=== PATIENT | female | born 1955 | race Caucasian/White ===

== ENCOUNTER 2023-06-02 08:33 | Emergency (ER) | payer MEDICARE, SELFPAY ==
[2023-06-02 08:37] VITALS: BP 162/92
--- NOTE | 2023-06-02 09:16 | ED.SKININJ ---
HPI-Injury
General
Chief Complaint: Head Injury
Source: patient
Exam Limitations: none
Time Seen by Provider: 06/02/23 08:55
Travel History
Have you had any contact with someone who has COVID-19?: No
Do you have any symptoms of coronavirus? Fever > 100 degrees, chills, cough, shortness of breath, sore throat, loss of taste or smell, muscle aches, or headache?: No
History of Present Illness-Injury
Initial Injury comments:
67-year-old female presents after fall in the bathroom. She slipped on the rug and fell hitting her head on the corner of the door. She also hit her knee. No anticoagulants. No loss conscious. She notes a headache. She notes some neck pain as
well. No other complaints at this
Past History
Past History
ED Past Medical History: None
ED Past Surgical History: Other (She has a history of a hysterectomy and back surgery, and surgery)
Social History
Tobacco: Non-smoker
Personal:
Living: with family
Employment: Employed
Phy Exam
Physical Exam
Physical Exam:
General: Well-appearing female no acute respiratory distress
HEENT: Normocephalic 4 and half centimeter curvilinear wound in the anterior to posterior direction over the right superior scalp. Edges do separate. Pupils equal round reactive to light
Musculoskeletal exam: Spine is mildly tender over the lower aspect of the cervical spine. Left knee swollen ecchymotic over the anterior knee. No deformities.
Skin positive for the above-mentioned laceration
Neurologic: Alert normal gait.
Course
Orders/Labs/Results
Orders:
Orders
06/02/23 08:41
Knee, Left 4 or More Views [CR Knee - Left 4 Or More View*] Urgent
Comment:
Reason For Exam: injury
06/02/23 09:15
CT Cervical Spine W/o Iv Contr Urgent
Comment:
Reason For Exam: fall, neck pain
CT Head W/o Iv Contrast Urgent
Comment:
Reason For Exam: fall, head injury
Vital Signs
Initial and Last Documented VS:
Initial Vital Signs
Temp Pulse Resp BP Pulse Ox
98.3 F 72 16 162/92 98
06/02/23 08:37 06/02/23 08:37 06/02/23 08:37 06/02/23 08:37 06/02/23 08:37
Last Documented Vital Signs
Temp Pulse Resp BP Pulse Ox
98.3 F 72 16 162/92 98
06/02/23 08:37 06/02/23 08:37 06/02/23 08:37 06/02/23 08:37 06/02/23 08:37
Procedures
Laceration Closure
Superior Scalp:
Status of Wound: clean
Description of Wound Edges: sharp
Preparation: cleaned with saline
Anesthesia: 1% Lidocaine with epi
Wound exploration: explored to base- no FB
Type of Closure: single layer closure
Skin Closure Material: skin clement
Number of sutures: 6
MDM/Problems Addressed
Differential Diagnosis Includes:
Mechanical fall laceration to scalp. CT of head and cervical spine pending. Also pain to the left knee after the fall. X-rays left knee pending
*Critical Care Note
Total Time (30-74mins, 75-104mins- exclusive of procedures): Not Applicable
Update Note
Update Note:
CT of head and cervical spine both negative. Patient reassured. Stable for discharge home
ED Attending Note
-
Portions of this chart may have been created with voice recognition software.� Occasional wrong word or��sound alike� substitutions may have occurred due to the inherent limitations of voice recognition software.
Discharge Plan
Departure
Patient Disposition: Home (Routine Discharge)
Date of Disposition: 06/02/23
Time of Disposition: 10:21
Patient with high blood pressure during this ER visit?: No
Discharge Problem:
Laceration
Instructions: Laceration Repair With [place] (DC)
Prescriptions:
No Action
bupropion HCl 300 MG tablet extended release 24 hr
300 mg PO DAILY
tramadol 50 MG tablet
50 mg PO Q8HPRN PRN (Reason: pain) Qty: 20 0RF
Referrals:
Ouomu Thrasher DO [Family Provider] -
Activity Restrictions/Additional Instructions:
Have clement removed in 7 days. Ice to the sore spots. Use Tylenol for pain
Interventions
Interventions:
*Risk Screen - Suicide Last Done: 06/02/23 08:37
*General Assessment Last Done: 06/02/23 08:37
*Neglect/Abuse Screening Last Done: 06/02/23 08:37
== END 2023-06-02 10:32 | disposition home or self-care (01) ==
LOC: EMR 08:33
PROVIDERS: EMERGENCY PHYSICIAN Emergency Medicine; FAMILY PHYSICIAN Family Medicine
DX: S09.90XA Unspecified injury of head, initial encounter (principal); S01.01XA Laceration without foreign body of scalp, initial encounter; W01.0XXA Fall on same level from slipping, tripping and stumbling without subsequent striking against object, initial encounter
CPT/HCPCS: 99284; 12001; 70450; 72125; 73564

== ENCOUNTER → 2023-08-05 07:16 | Outpatient (REF) | payer MEDICARE, SELFPAY | LOC: RAD 07:16 | PROVIDERS: ATTENDING PHYSICIAN Family Medicine | DX: E04.2 Nontoxic multinodular goiter (principal) | CPT/HCPCS: 76536 ==

== ENCOUNTER → 2023-09-23 12:23 | Outpatient (REF) | payer MEDICARE, SELFPAY ==
[2023-09-23 12:45] VITALS: BP 154/78; BP_SYST 79
== END ==
LOC: RADI 12:23
PROVIDERS: ATTENDING PHYSICIAN Otolaryngology Facial Plastic Surgery; FAMILY PHYSICIAN Family Medicine
DX: E04.2 Nontoxic multinodular goiter (principal)
CPT/HCPCS: 88173; 10005; 10006

== ENCOUNTER → 2024-07-13 19:05 | Outpatient (REF) | payer MEDICARE, SELFPAY | LOC: WDC 19:05 | PROVIDERS: ATTENDING PHYSICIAN Family Medicine | DX: Z12.31 Encounter for screening mammogram for malignant neoplasm of breast (principal) | CPT/HCPCS: 77063; 77067 ==